=== PATIENT | male | born 1965 | race Caucasian/White ===

== ENCOUNTER 2025-05-04 10:15 | Inpatient (IN) | payer MEDICARE ==
[~2025-05-04] VITALS: Ht 177.8 cm; Wt 72.6 kg
[~2025-05-04 10:15] MED LIST: B-121000 MCG PO; CLONIDINE1 EAC2 T; DIALYVITE WITH1 EACH PO; DIVALPROEX SOD500 MG PO; HYDROXYZINE PAM25 M1 PO; HYDROXYZINE PAM50 MG PO; LISINOPRIL10 M1 PO; MEMANTINE HCL10 MG PO; MIRTAZAPINE15 M2 PO; MULTIPLE VITAM1 EAC1 PO; NATURE'S BLEND F1 MG PO; RISPERIDONE0.5 MG PO; RIVASTIGMINE1 EAC2 T
[2025-05-04 10:21] VITALS: BP 90/58
[2025-05-04 11:07] LABS: BASO # 0.0 10*3/uL (0.0-0.1); BASO % 0.8 % (0.0-1.0); EOS # 0.0 10*3/uL (0.0-0.4); EOS % 0.8 % (1.0-4.0); MEAN CELL VOLUME 93.9 fl (80.0-94.0); MEAN CORPUSCULAR HGB 30.6 pg (27.0-31.0); MEAN PLATELET VOLUME 8.9 fl (9.6-12.3); MONO # 0.4 10*3/uL (0.1-1.0); MONO % 6.9 % (3.0-9.0); NEUT # 3.6 10*3/uL (2.3-7.9); NEUT % 67.9 % (47.0-73.0); NUCLEATED RED BLOOD CELL 0.0 % (0.0-0.0); NUCLEATED RED BLOOD CELL 0.0 10*3/uL (0.0-0.0); PLATELET COUNT AUTOMATED 319 10*3/uL (130-400); RED CELL DISTRI WIDTH 13.0 % (0-14.5)
[2025-05-04 11:33] LABS: BUN 22 mg/dl (9-23)
[2025-05-04 11:34] LABS: ETHYL ALCOHOL < 3.0 mg/dl (<3)
[2025-05-04 11:55] LABS: BILIRUBIN Negative (Negative); BLOOD Negative (Negative); CLARITY Clear (Clear); COLOR Dark Yellow (Yellow); KETONE Trace (Negative); LEUKO ESTERASE Trace (Negative); NITRITE Negative (Negative); PH 6.5 (4.5-8.0); SPECIFIC GRAVITY 1.020 (1.001-1.030); UROBILINOGEN 2.0 E.U./dl (0.0-1.0)
[2025-05-04 12:03] LABS: URINE AMPHETAMINES Negative (1000ng/ml); URINE BARBITURATES Negative (200ng/ml); URINE BENZODIAZEPINES Negative (200ng/ml); URINE CANNABINOIDS (THC) Negative (50ng/ml); URINE COCAINE Negative (300ng/ml); URINE METHADONE Negative (300ng/ml); URINE OPIATES Negative (300ng/ml); URINE PHENCYCLIDINE Negative (25ng/ml)
[2025-05-04 12:04] LABS: BACTERIA 1+; MUCOUS 1+; RBC 0-2 rbc/hpf (0-2)
[2025-05-04] MEDS ORDERED: DERMABOND 1 EA APPL T ONE (12:34)
[2025-05-04] MEDS ORDERED: Water, Sterile 10 ML VIAL IM PRN (16:00)
[2025-05-04] MEDS ORDERED: LORazepam 2 MG/ML VIAL IM PRN (16:00)
[2025-05-04] MEDS ORDERED: LORazepam 1 MG TAB PO PRN (16:00)
[2025-05-04] MEDS ORDERED: hydrOXYzine hydrochloride 50 MG/ML VIAL IM PRN (16:05)
[2025-05-04] MEDS ORDERED: MG-AL HYDROXIDE/SIMETICONE 30 ML UDC PO PRN (16:35)
[2025-05-04] MEDS ORDERED: ACETAMINOPHEN 325 MG TAB PO PRN (16:35)
[2025-05-04] MEDS ORDERED: Menthol/Zinc Oxide 4 GM THIN T PRN (16:40)
[2025-05-04 20:00] VITALS: BP 116/85
[2025-05-04] MEDS ORDERED: CEFDINIR 300 MG CAP PO SCH (21:00)
[2025-05-04] MEDS ORDERED: Mirtazapine 15 MG TAB PO SCH (21:00)
[2025-05-05 06:27] LABS: BASO # 0.1 10*3/uL (0.0-0.1); BASO % 1.4 % (0.0-1.0); EOS # 0.2 10*3/uL (0.0-0.4); EOS % 2.5 % (1.0-4.0); MEAN CELL VOLUME 93.0 fl (80.0-94.0); MEAN CORPUSCULAR HGB 30.5 pg (27.0-31.0); MEAN PLATELET VOLUME 9.1 fl (9.6-12.3); MONO # 0.6 10*3/uL (0.1-1.0); MONO % 8.9 % (3.0-9.0); NEUT # 3.3 10*3/uL (2.3-7.9); NEUT % 49.8 % (47.0-73.0); NUCLEATED RED BLOOD CELL 0.0 % (0.0-0.0); NUCLEATED RED BLOOD CELL 0.0 10*3/uL (0.0-0.0); PLATELET COUNT AUTOMATED 330 10*3/uL (130-400); RED CELL DISTRI WIDTH 13.0 % (0-14.5)
[2025-05-05 07:04] LABS: BUN 25.0 mg/dl (9-23); LDL CHOLESTEROL 115.0 mg/dL (9-159); SGPT/ALT 11.0 U/L (5-49)
[2025-05-05 07:19] LABS: VITAMIN D, 25-HYDROXY 46.7 ng/mL (30-100)
[2025-05-05 08:23] VITALS: BP 109/92
[2025-05-05] MEDS ORDERED: RIVASTIGMINE 13.3 MG/24 HR TDM T SCH (09:00)
[2025-05-05] MEDS ORDERED: CITALOPRAM 20 MG TAB PO SCH (09:00)
[2025-05-05] MEDS ORDERED: LISINOPRIL 10 MG TAB PO SCH (09:00)
[2025-05-05] MEDS ORDERED: MULTIVITAMIN 1 TAB TAB PO SCH (09:00)
[2025-05-05] MEDS ORDERED: FOLIC ACID 1 MG TAB PO SCH (09:00)
[2025-05-05] MEDS ORDERED: risperiDONE 0.5 MG TAB PO SCH (09:00)
[2025-05-05 20:00] VITALS: BP 90/56
[2025-05-06 08:54] VITALS: BP 90/56
[2025-05-06 20:00] VITALS: BP 142/113
[2025-05-07 08:00] VITALS: BP 109/76
[2025-05-07 20:00] VITALS: BP 136/88
[2025-05-08 08:00] VITALS: BP 108/74
[2025-05-09 09:42] VITALS: BP 97/56
[2025-05-09] MEDS ORDERED: Rivastigmine Tartrate 9.5 MG/24 HR PATCH T SCH (12:25)
[2025-05-09 20:00] VITALS: BP 112/75
[2025-05-10 09:17] VITALS: BP 126/95
[2025-05-10] MEDS ORDERED: risperiDONE 1 MG TAB PO ONE (14:15)
[2025-05-10] MEDS ORDERED: risperiDONE 1 MG TAB PO SCH ×2 (21:00)
[2025-05-11 08:00] VITALS: BP 101/75
[2025-05-11 20:00] VITALS: BP 153/69
[2025-05-12 06:29] LABS: BASO # 0.1 10*3/uL (0.0-0.1); BASO % 1.0 % (0.0-1.0); EOS # 0.2 10*3/uL (0.0-0.4); EOS % 3.5 % (1.0-4.0); MEAN CELL VOLUME 92.2 fl (80.0-94.0); MEAN CORPUSCULAR HGB 30.3 pg (27.0-31.0); MEAN PLATELET VOLUME 9.0 fl (9.6-12.3); MONO # 0.7 10*3/uL (0.1-1.0); MONO % 11.1 % (3.0-9.0); NEUT # 3.3 10*3/uL (2.3-7.9); NEUT % 52.4 % (47.0-73.0); NUCLEATED RED BLOOD CELL 0.0 % (0.0-0.0); NUCLEATED RED BLOOD CELL 0.0 10*3/uL (0.0-0.0); PLATELET COUNT AUTOMATED 207 10*3/uL (130-400); RED CELL DISTRI WIDTH 13.0 % (0-14.5)
[2025-05-12 07:09] LABS: BUN 18 mg/dl (9-23); SGPT/ALT 20 U/L (5-49)
[2025-05-12 08:19] VITALS: BP 96/57
[2025-05-12] MEDS ORDERED: DIVALPROEX SODIUM 125 MG TAB PO SCH (09:00)
[2025-05-12 20:00] VITALS: BP 93/52
[2025-05-13 08:00] VITALS: BP 108/81
[2025-05-13 18:50] LABS: BILIRUBIN Negative (Negative); BLOOD Negative (Negative); CLARITY Clear (Clear); COLOR Yellow (Yellow); KETONE Negative (Negative); LEUKO ESTERASE Negative (Negative); NITRITE Negative (Negative); PH 6.0 (4.5-8.0); SPECIFIC GRAVITY 1.010 (1.001-1.030); UROBILINOGEN 0.2 E.U./dl (0.0-1.0)
[2025-05-13 19:04] LABS: RBC 0-2 rbc/hpf (0-2); WBC 0-2 wbc/hpf (0-5)
[2025-05-13 20:00] VITALS: BP 132/70
[2025-05-14 08:55] VITALS: BP 102/67
[2025-05-14 20:00] VITALS: BP 115/63
[2025-05-15 08:00] VITALS: BP 117/73
[2025-05-15] MEDS ORDERED: RIVASTIGMINE 13.3 MG/24 HR TDM T SCH (09:00)
[2025-05-15 20:00] VITALS: BP 106/63
[2025-05-16 08:18] VITALS: BP 95/66
[2025-05-16 20:00] VITALS: BP 105/55
[2025-05-17 08:00] VITALS: BP 109/77
[2025-05-17 20:00] VITALS: BP 95/56
[2025-05-18 08:00] VITALS: BP 120/77
[2025-05-18 08:30] LABS: BASO # 0.0 10*3/uL (0.0-0.1); BASO % 0.7 % (0.0-1.0); EOS # 0.2 10*3/uL (0.0-0.4); EOS % 2.7 % (1.0-4.0); MEAN CELL VOLUME 93.0 fl (80.0-94.0); MEAN CORPUSCULAR HGB 30.2 pg (27.0-31.0); MEAN PLATELET VOLUME 8.6 fl (9.6-12.3); MONO # 0.5 10*3/uL (0.1-1.0); MONO % 9.5 % (3.0-9.0); NEUT # 3.1 10*3/uL (2.3-7.9); NEUT % 55.5 % (47.0-73.0); NUCLEATED RED BLOOD CELL 0.0 % (0.0-0.0); NUCLEATED RED BLOOD CELL 0.0 10*3/uL (0.0-0.0); PLATELET COUNT AUTOMATED 195 10*3/uL (130-400); RED CELL DISTRI WIDTH 13.4 % (0-14.5)
[2025-05-18 09:20] LABS: BUN 20 mg/dl (9-23); SGPT/ALT 13 U/L (5-49)
[2025-05-18] MEDS ORDERED: CITALOPRAM20 MG PO ×2 (12:17→12:35)
[2025-05-18] MEDS ORDERED: MEMANTINE HCL10 MG PO ×2 (12:17→12:35)
[2025-05-18] MEDS ORDERED: RISPERDAL1 M1 PO ×2 (12:17→12:35)
[2025-05-18] MEDS ORDERED: RIVASTIGMINE1 EAC2 T ×2 (12:17→12:35)
[2025-05-18] MEDS ORDERED: HYDR100C PO ×2 (12:17→12:35)
[2025-05-18] MEDS ORDERED: DIVALPROEX SOD125 MG PO ×2 (12:17→12:35)
== END 2025-05-18 15:00 | DRG 883 ==
LOC: ED 10:15 → 3N 13:41 → EDHOLD 13:41 → 3N 14:12
PROVIDERS: Counselor Professional; Emergency Medicine; ADMIT Psychiatry & Neurology Psychiatry; ATTEND Psychiatry & Neurology Psychiatry
PROC: GZHZZZZ Group Psychotherapy (ICD-10-PCS; principal; 2025-05-05)
DX: F63.81 Intermittent explosive disorder (principal); N39.0 Urinary tract infection, site not specified; F02.818 Dementia in other diseases classified elsewhere, unspecified severity, with other behavioral disturbance; D53.9 Nutritional anemia, unspecified; R73.9 Hyperglycemia, unspecified; G30.9 Alzheimer's disease, unspecified; I10 Essential (primary) hypertension; E78.5 Hyperlipidemia, unspecified; Z66 Do not resuscitate; Z51.5 Encounter for palliative care; Z91.030 Bee allergy status

== ENCOUNTER 2025-05-20 14:50 | Inpatient (IN) | payer MEDICARE ==
[~2025-05-20] VITALS: Ht 175.2 cm; Wt 68.0 kg
[~2025-05-20 14:50] MED LIST changes: +CITALOPRAM20 MG PO; +DIVALPROEX SOD125 MG PO; +HYDR100C PO; +RISPERDAL1 M1 PO
[2025-05-20 15:39] VITALS: BP 114/66
[2025-05-20] MEDS ORDERED: ACETAMINOPHEN 325 MG TAB PO PRN (16:00)
[2025-05-20] MEDS ORDERED: MG-AL HYDROXIDE/SIMETICONE 30 ML UDC PO PRN (16:00)
[2025-05-20] MEDS ORDERED: Menthol/Zinc Oxide 4 GM THIN T PRN (16:05)
[2025-05-20] MEDS ORDERED: hydrOXYzine hydrochloride 50 MG/ML VIAL IM PRN (16:10)
[2025-05-20] MEDS ORDERED: LORazepam 1 MG TAB PO PRN (16:10)
[2025-05-20] MEDS ORDERED: Water, Sterile 10 ML VIAL IM PRN (16:15)
[2025-05-20 16:40] LABS: BASO # 0.0 10*3/uL (0.0-0.1); BASO % 0.7 % (0.0-1.0); EOS # 0.1 10*3/uL (0.0-0.4); EOS % 0.8 % (1.0-4.0); MEAN CELL VOLUME 93.4 fl (80.0-94.0); MEAN CORPUSCULAR HGB 30.1 pg (27.0-31.0); MEAN PLATELET VOLUME 8.1 fl (9.6-12.3); MONO # 0.6 10*3/uL (0.1-1.0); MONO % 9.3 % (3.0-9.0); NEUT # 3.7 10*3/uL (2.3-7.9); NEUT % 62.6 % (47.0-73.0); NUCLEATED RED BLOOD CELL 0.0 % (0.0-0.0); NUCLEATED RED BLOOD CELL 0.0 10*3/uL (0.0-0.0); PLATELET COUNT AUTOMATED 188 10*3/uL (130-400); RED CELL DISTRI WIDTH 13.5 % (0-14.5)
[2025-05-20 16:59] LABS: BUN 22 mg/dl (9-23)
[2025-05-20] MEDS ORDERED: hydrOXYzine 50 MG CAP PO SCH (17:00)
[2025-05-20 20:00] VITALS: BP 92/66
[2025-05-20] MEDS ORDERED: DIVALPROEX SODIUM 125 MG TAB PO SCH (21:00)
[2025-05-20] MEDS ORDERED: risperiDONE 1 MG TAB PO SCH (21:00)
[2025-05-21 06:28] LABS: BASO # 0.1 10*3/uL (0.0-0.1); BASO % 0.9 % (0.0-1.0); EOS # 0.1 10*3/uL (0.0-0.4); EOS % 2.4 % (1.0-4.0); MEAN CELL VOLUME 94.1 fl (80.0-94.0); MEAN CORPUSCULAR HGB 30.4 pg (27.0-31.0); MEAN PLATELET VOLUME 8.5 fl (9.6-12.3); MONO # 0.5 10*3/uL (0.1-1.0); MONO % 9.9 % (3.0-9.0); NEUT # 2.8 10*3/uL (2.3-7.9); NEUT % 51.5 % (47.0-73.0); NUCLEATED RED BLOOD CELL 0.0 % (0.0-0.0); NUCLEATED RED BLOOD CELL 0.0 10*3/uL (0.0-0.0); PLATELET COUNT AUTOMATED 208 10*3/uL (130-400); RED CELL DISTRI WIDTH 13.4 % (0-14.5)
[2025-05-21 06:48] LABS: BUN 21 mg/dl (9-23); LDL CHOLESTEROL 122 mg/dL (9-159); SGPT/ALT 14 U/L (5-49); VALPROIC ACID (DEPAKENE) 12.7 ug/ml (50-100)
[2025-05-21 07:36] LABS: VITAMIN D, 25-HYDROXY 47.4 ng/mL (30-100)
[2025-05-21 08:20] VITALS: BP 99/70
[2025-05-21] MEDS ORDERED: FOLIC ACID 1 MG TAB PO SCH (09:00)
[2025-05-21] MEDS ORDERED: MULTIVITAMIN PO SCH (09:00)
[2025-05-21] MEDS ORDERED: MINERALS PO SCH (09:00)
[2025-05-21] MEDS ORDERED: CITALOPRAM 20 MG TAB PO SCH (09:00)
[2025-05-21] MEDS ORDERED: [UNRECOGNIZED DRUG - OTHER] PO SCH (09:00)
[2025-05-21] MEDS ORDERED: Z-BEC PO SCH (09:00)
[2025-05-21] MEDS ORDERED: RIVASTIGMINE 13.3 MG/24 HR TDM T SCH (09:00)
[2025-05-21] MEDS ORDERED: LISINOPRIL 10 MG TAB PO SCH (09:00)
[2025-05-21] MEDS ORDERED: DIVALPROEX (DR) 250 MG TAB PO SCH (13:00)
[2025-05-21 20:00] VITALS: BP 90/55
[2025-05-22 08:00] VITALS: BP 95/65
[2025-05-22 20:35] VITALS: BP 105/71
[2025-05-23] MEDS ORDERED: DIVALPROEX (DR) 500 MG TAB PO SCH (21:00)
[2025-05-23 21:06] VITALS: BP 101/58
[2025-05-24 09:29] VITALS: BP 92/74
[2025-05-24] MEDS ORDERED: DIVALPROEX (DR) 500 MG TAB PO SCH (13:00)
[2025-05-25 08:00] VITALS: BP 93/62
[2025-05-25] MEDS ORDERED: UZEDY100 MG/0.2 SQ (12:29)
[2025-05-25] MEDS ORDERED: DIVALPROEX SOD500 MG PO (12:29)
[2025-05-25] MEDS ORDERED: HYDR100C PO (12:29)
[2025-05-25] MEDS ORDERED: CITALOPRAM20 MG PO (12:29)
== END 2025-05-25 12:34 | DRG 883 ==
LOC: 3N 14:50
PROVIDERS: Student in an Organized Health Care Education/Training Program; ADMIT Psychiatry & Neurology Psychiatry; ATTEND Psychiatry & Neurology Psychiatry
PROC: GZHZZZZ Group Psychotherapy (ICD-10-PCS; principal; 2025-05-21)
PROC: GZ56ZZZ Individual Psychotherapy, Supportive (ICD-10-PCS; 2025-05-21)
DX: F63.81 Intermittent explosive disorder (principal); F02.83 Dementia in other diseases classified elsewhere, unspecified severity, with mood disturbance; F02.84 Dementia in other diseases classified elsewhere, unspecified severity, with anxiety; D64.9 Anemia, unspecified; Z66 Do not resuscitate; G30.9 Alzheimer's disease, unspecified; R73.9 Hyperglycemia, unspecified; E78.5 Hyperlipidemia, unspecified; I10 Essential (primary) hypertension; Z79.899 Other long term (current) drug therapy; Z79.01 Long term (current) use of anticoagulants; Z79.2 Long term (current) use of antibiotics